=== PATIENT | female | born 1975 | race African-American/Black ===

== ENCOUNTER 2018-12-31 08:54 | Day surgery (SDC) | payer OTHER ==
[2018-12-31] MEDS ORDERED: MIDAZOLAM 1 MG/ML 2 ML INJ ×3 (11:54)
[2018-12-31] MEDS ORDERED: FENTAnyl 50 MCG/ML VIAL (11:54)
== END 2018-12-31 12:25 | disposition home or self-care (01) ==
LOC: GIL 08:54
DX: Z12.11 Encounter for screening for malignant neoplasm of colon (principal)
CPT/HCPCS: 45378; 84703